=== PATIENT | female | born 1980 | race Two or more races ===

== ENCOUNTER 2023-10-26 10:53 | Outpatient (RCR) | payer MEDICAID, SELFPAY | END 2023-10-30 23:59 | disposition home or self-care (01) | LOC: CPTX 10:53 | PROVIDERS: PCP Physician Assistant; Referring Provider Physician Assistant; Visit Provider Physician Assistant | DX: Z53.9 Procedure and treatment not carried out, unspecified reason (principal) ==

== ENCOUNTER 2024-09-30 16:25 | Observation (INO) | payer MEDICAID, SELFPAY ==
[2024-09-30 16:39] VITALS: BP 122/74; PULSE 70
--- NOTE | 2024-09-30 16:57 | XR_ITS ---
Examination: Biophysical profile, ultrasound Date and time of exam: September 30, 2024 1747 hrs. Indications: Pelvic pain beginning 3 weeks ago Technique: Multiple transabdominal sonographic images of the pelvis abdomen obtained. Attention is directed to the breathing movement, gross body movement, amniotic fluid volume and tone. Findings: Amniotic fluid index 15.4 cm Total biophysical profile is 8 of 8. breathing movement is 2. Gross body movement is 2. tone is 2. Qualitative amniotic fluid volume is 2 Impression: Biophysical profile is 8 of 8.
[2024-09-30 17:40] LABS: Collection Type, Urine Clean Catch
[2024-09-30 17:47] LABS: Basophils % (Auto) 0 % (0-2.5); Eosinophils % (Auto) 1 % (0-10); Hematocrit 36.8 % (36.0-46.0); Hemoglobin 12.4 g/dL (12.0-16.0); Immature Granulocytes % (Auto) 0 % (0-0); Immature Granulocytes Auto 0.02 Thou/mm3 (0.00-0.00); Lymphocytes # (Auto) 1.2 Thou/mm3 (1.0-4.8); Lymphocytes % (Auto) 21 % (10-50); Mean Corpuscular HGB Conc 33.7 g/dl (31.0-37.0); Mean Corpuscular Hemoglobin 28.4 pg (25.0-35.0); Mean Corpuscular Volume 84 fL (80-100); Monocytes # (Auto) 0.4 Thou/mm3 (0.0-0.8); Monocytes % (Auto) 8 % (0-12); Neutrophils # (Auto) 4.1 Thou/mm3 (1.8-7.7); Neutrophils % (Auto) 70 % (37-80); Nucleated Red Blood Cell % 0 /100 WBC (0); Platelet Count 178 Thou/mm3 (140-440); RDW Standard Deviation 41.1 fL (36.4-46.3); Red Blood Count 4.37 Miln/mm3 (4.00-5.20); White Blood Count 5.8 Thou/mm3 (3.6-11.0)
[2024-09-30 17:50] LABS: Bilirubin,Urine Negative (Negative); Blood,Urine Negative (Negative); Clarity,Urine Clear (Clear/Hazy); Color,Urine Yellow (Lt Yel-Yel); Glucose, Urine Negative (Negative); Ketones,Urine Negative (Negative); Leukocyte Esterase,Urine Negative (Negative); Nitrite,Urine Negative (Negative); Protein,Urine Trace (Neg - Trace); RBC,Urine 1 /hpf (0-3); Squamous Epithelial Cell,Urine 2 /hpf (0-5); WBC,Urine 3 /hpf (0-5)
[2024-09-30 18:01] LABS: Partial Thromboplastin Time 25.6 Seconds (22.0-36.0); Prothrombin Time 10.5 Seconds (9.0-12.2)
[2024-09-30 18:02] LABS: Alanine Aminotransferase 38 U/L (10-49); Albumin, Serum 4.2 gm/dL (3.5-5.0); Albumin/Globulin Ratio 1.4 (1.2-2.2); Alkaline Phosphatase 268 U/L (46-116); Anion Gap 12 (7-16); Aspartate Amino Transferase 65 U/L (0-34); BUN/Creatinine Ratio 24 Ratio (12-20); Bilirubin,Total 0.5 mg/dL (0.3-1.2); Blood Urea Nitrogen 17 mg/dL (9-23); Calcium 9.1 mg/dL (8.3-10.6); Calcium (Corrected) 9.1 mg/dL (8.5-10.1); Carbon Dioxide 20.2 mMol/L (20.0-31.0); Chloride 103 mMol/L (98-107); Creatinine (Component) 0.7 mg/dL (0.6-1.3); Globulin 2.9 gm/dL (2.3-3.5); Glucose 95 mg/dL (74-106); LDH (Lactate Dehydrogenase) 154 U/L (120-246); Osmolality,Calculated 271 (275-295); Sodium 135 mMol/L (136-145); Total Protein 7.1 gm/dL (5.7-8.2); eGFR > 60 See Note
[2024-09-30 18:09] LABS: Fibrinogen 620 mg/dL (175-375)
[2024-09-30 18:51] VITALS: BP 114/74; PULSE 66
[2024-09-30 19:30] VITALS: BMI 30.9
== END 2024-09-30 19:15 | disposition home or self-care (01) ==
PROVIDERS: Admitting Provider Obstetrics & Gynecology; Visit Provider Obstetrics & Gynecology
DX: O26.893 Other specified pregnancy related conditions, third trimester (principal); R10.13 Epigastric pain; L29.9 Pruritus, unspecified; Z3A.36 36 weeks gestation of pregnancy
CPT/HCPCS: 36415; 59025; 59899; 76819; 80053; 81001; 83615; 84550; 85025; 85384; 85610; 85730

== ENCOUNTER 2024-10-02 16:08 | Outpatient (CLI) | payer MEDICAID, SELFPAY ==
--- NOTE | 2024-10-02 16:16 | XR_ITS ---
Examination: Biophysical profile, ultrasound Date and time of exam: October 02, 2024 1628 hours INDICATIONS: Diagnosis cholestasis of , right upper abdominal pain beginning 2 weeks ago Technique: Multiple transabdominal sonographic images of the pelvis abdomen obtained. Attention is directed to the breathing movement, gross body movement, amniotic fluid volume and tone. Findings: Amniotic fluid index 9.2 cm Total biophysical profile is 8 of 8. breathing movement is 2. Gross body movement is 2. tone is 2. Qualitative amniotic fluid volume is 2 Impression: Biophysical profile is 8 of 8.
[2024-10-02 16:24] VITALS: BMI 30.9
[2024-10-02 17:14] VITALS: BP 112/70; PULSE 67
[2024-10-02 17:44] VITALS: BP 120/76; PULSE 66
== END 2024-10-02 18:00 | disposition home or self-care (01) ==
LOC: S4S1 16:09 → S4SX 16:10
PROVIDERS: Referring Provider Nurse Practitioner Women's Health; Visit Provider Nurse Practitioner Women's Health
DX: Z34.83 Encounter for supervision of other normal pregnancy, third trimester (principal); Z36.9 Encounter for antenatal screening, unspecified; Z3A.37 37 weeks gestation of pregnancy
CPT/HCPCS: 59025; 76819

== ENCOUNTER 2024-10-08 16:12 | Inpatient (IN) | payer MEDICAID, SELFPAY ==
[2024-10-08] VITALS (9 sets, daily range): BP systolic 104–119; BP diastolic 56–78; PULSE 62–71; RESP 18; TEMP 36.4–36.7; BMI 29.9
[2024-10-08 16:53] LABS: Basophils % (Auto) 0 % (0-2.5); Eosinophils % (Auto) 0 % (0-10); Hematocrit 37.7 % (36.0-46.0); Hemoglobin 12.9 g/dL (12.0-16.0); Immature Granulocytes % (Auto) 0 % (0-0); Immature Granulocytes Auto 0.01 Thou/mm3 (0.00-0.00); Lymphocytes # (Auto) 1.1 Thou/mm3 (1.0-4.8); Lymphocytes % (Auto) 20 % (10-50); Mean Corpuscular HGB Conc 34.2 g/dl (31.0-37.0); Mean Corpuscular Hemoglobin 28.1 pg (25.0-35.0); Mean Corpuscular Volume 82 fL (80-100); Monocytes # (Auto) 0.4 Thou/mm3 (0.0-0.8); Monocytes % (Auto) 7 % (0-12); Neutrophils % (Auto) 73 % (37-80); Nucleated Red Blood Cell % 0 /100 WBC (0); Platelet Count 158 Thou/mm3 (140-440); RDW Standard Deviation 39.8 fL (36.4-46.3); Red Blood Count 4.59 Miln/mm3 (4.00-5.20); White Blood Count 5.5 Thou/mm3 (3.6-11.0)
--- NOTE | 2024-10-08 16:56 | XR_ITS ---
Examination: Complete OB ultrasound greater than 14 weeks Date and time of exam: October 08, 2024 1708 hrs. Indications: Diagnosis cholestasis of one month ago, labor evaluation, pelvic discomfort beginning 3 weeks ago Findings: Viable intrauterine single fetus with single amniotic sac presentation cephalic Cardiac motion 122 BPM Placenta anterior grade 3 Umbilical cord insertion seen Amniotic fluid index 18.7 cm spine maternal right Cervix 2.8 cm Ovaries obscured by bowel gas. Composite estimated gestational age based on BPD, head circumference, abdominal circumference, femur length is 37 weeks 0 days Estimated weight 3055 g. Survey of intracranial anatomy, spinal anatomy, abdominal anatomy, four-chamber heart performed with no abnormalities identified. Impression: Viable intrauterine gestation cephalic presentation.
[2024-10-08 17:34] LABS: Syphilis Nonreactive (Nonreactive)
[2024-10-08] MEDS: CLINDAMYCIN 900MG IVPB 900 MG in PRE-MIXED 1 BAG 50 MG IV (18:35)
[2024-10-08] MEDS: RINGERS LACTATED 1000 ML 1,000 ML 100 ML IV (18:37)
--- NOTE | 2024-10-08 18:48 | ESHP_ITS ---
Documentation for date of: 10/08/24 OB Labor/Induct. HPI History of Present Illness Chief complaint: 44 y/o 38w 0d presents for IOL due to Cholestasis : 8 Para: 5 Term pregnancies: 5 pregnancies: 0 Living children: 5 History of Abortions: Spontaneous and Elective: 2 History of Vaginal deliveries: 5 History of sections: No History of : No ERICK: 10/22/24 Gestational Age (weeks): 38 Gestational Age (days): 0 Indication for induction: medical complication History of present illness: 44 y/o 38w 0d presents for IOL due to Cholestasis. Pt has been also complicated by AMA of 44. PT was a transfer of care from Dr. Campbell office at 31 weeks. Pt saw [facility] prior to coming to [facility] and they recommended that fetus gets testing for monosomy X possible Hogan Syndrome. Pt was also seen by Dr. Hernandez at [facility] growth was normal, at 65%ile. Anatomy appeared to be normal but unable to evaluate all structures due to crowding. Pt was recently diagnosed with cholestasis with bile acids 12.8, AST 50 and ALT 82. Pt is currently on ursodiol 300 TID. Pt has a hx of NVDx5 and 2 SAB. GBS is positive. EFW 3000g History of Present Dating criteria: LMP confirmed by 1st trimester US Adequate Care: Yes Ultrasounds: normal 1st trimester US and normal mid trimester US Obstetrical complications: other (Cholestasis and AMA) Labs Maternal Blood Type: O Pos Labs: Positive: Rubella Titre and Group Beta Strep, Negative: RPR, Hepatitis B, HIV, Chlamydia and Gonorrhea and Unknown: Herpes Type 1, Herpes Type 2 and Covid-19 Review of Systems Review of Systems Systems Reviewed: All systems reviewed, normal except as documented Past Medical History Surgical History SURGICAL: Negative Section Meds Home Medications and Allergies Home Medications ?Medication ?Instructions ?Recorded ?Confirmed ?Type vits no.124-ferrous fum 1 tab PO QDAY 09/19/18 10/08/24 History 27 mg iron-folic acid 800 mcg tablet ( Vitamin) Allergies Allergy/AdvReac Type Severity Reaction Status Date / Time Penicillins Allergy Severe Swelling Verified 09/30/24 17:26 of Lip/Tongue/Throat OB Exam Physical Exam Vital signs: Temp Pulse Resp BP 98.1 F 65 18 113/63 10/08/24 16:22 10/08/24 18:36 10/08/24 16:22 10/08/24 18:36 Constitutional Constitutional: no acute distress Routine HEENT Exam Head: Present normocephalic and atraumatic Eye: Present EOMI, PERRL and normal accommodation ENT: Present mucous membranes moist Routine Neck Exam Neck: Present supple, full ROM and trachea midline Routine Respiratory Exam Respiratory: Absent respiratory distress Routine Cardiovascular Exam Cardiovascular: Present RRR Routine Abdominal Exam Abdominal: Present soft and normoactive bowel sounds Comments: Gravid Uterus EFW 3000g Routine Exam External: Present normal urethra appearance; Absent lesions Detailed Labor and Delivery Exam Dilation (cm): 1 Effacement (%): thick Cervix position: posterior station: -3 Consistency: medium Presentation: Vertex Membranes: intact Baseline heart rate: 125 monitor accelerations: 15x15 monitor decelerations: None exterminator termite variability: Moderate (11-25) Contraction frequency (min): none Routine Extremities Exam Extremities: Present full ROM Routine Back/Spine/Pelvis Exam Back/Spine: Present full ROM Routine Skin Exam Skin: Present intact, dry and warm Routine Neurological Exam Neurological: Present alert, oriented X3 and CN II-XII intact Routine Psychiatric Exam Psychiatric: Present normal affect and normal thought process OB Results Labs 10/08/24 16:38 Labs: Short CBC 10/08/24 Range/Units 16:38 WBC 5.5 (3.6-11.0) Thou/mm3 Hgb 12.9 (12.0-16.0) g/dL Hct 37.7 (36.0-46.0) % Plt Count 158 (140-440) Thou/mm3 OB Assessment & Plan Assessment and Plan (1) Encounter for induction of labor: Status: Acute (2) Cholestasis during in third trimester: Status: Acute (3) Advanced maternal age (AMA), 40 years or greater: Status: Acute (4) Grand multipara in labor in third trimester: Status: Acute (5) GBS carrier: Status: Acute Additional Plan Induction method: other (Cervidil) Plan: induction, anticipate NVD, GBS prophylaxis tx and consult prn Additional Plan Comment: Routine admit orders Start 2 IV lines 2 units of pRBC on hold PPH meds at bedside during delivery Continuous EFM Continue urosdiol 300mg TID
[2024-10-08] MEDS: DINOPROSTONE 10 MG VAG.SUPP VAGINAL (19:11)
[2024-10-09] VITALS (52 sets, daily range): BP systolic 107–137; BP diastolic 59–76; PULSE 59–90; TEMP 36.8; O2SAT 79–100
[2024-10-09] MEDS: CLINDAMYCIN 900MG IVPB 900 MG in PRE-MIXED 1 BAG 50 MG IV ×3 (02:21→19:08)
[2024-10-09 05:58] LABS: Basophils % (Auto) 0 % (0-2.5); Eosinophils % (Auto) 0 % (0-10); Hematocrit 35.5 % (36.0-46.0); Hemoglobin 12.2 g/dL (12.0-16.0); Immature Granulocytes % (Auto) 0 % (0-0); Immature Granulocytes Auto 0.02 Thou/mm3 (0.00-0.00); Lymphocytes % (Auto) 19 % (10-50); Mean Corpuscular HGB Conc 34.4 g/dl (31.0-37.0); Mean Corpuscular Hemoglobin 28.6 pg (25.0-35.0); Mean Corpuscular Volume 83 fL (80-100); Monocytes # (Auto) 0.5 Thou/mm3 (0.0-0.8); Monocytes % (Auto) 9 % (0-12); Neutrophils # (Auto) 3.8 Thou/mm3 (1.8-7.7); Neutrophils % (Auto) 72 % (37-80); Nucleated Red Blood Cell % 0 /100 WBC (0); Platelet Count 135 Thou/mm3 (140-440); RDW Standard Deviation 41.2 fL (36.4-46.3); Red Blood Count 4.27 Miln/mm3 (4.00-5.20); White Blood Count 5.3 Thou/mm3 (3.6-11.0)
[2024-10-09 06:12] LABS: Anion Gap 11 (7-16); BUN/Creatinine Ratio 26 Ratio (12-20); Blood Urea Nitrogen 18 mg/dL (9-23); Calcium 9.3 mg/dL (8.3-10.6); Carbon Dioxide 19.9 mMol/L (20.0-31.0); Chloride 101 mMol/L (98-107); Creatinine (Component) 0.7 mg/dL (0.6-1.3); Estimated Creatinine Clearance 98.7 mL/min (>60); Gentamicin Trough < 0.5 mcg/mL; Glucose 67 mg/dL (74-106); Osmolality,Calculated 264 (275-295); Potassium 3.7 mMol/L (3.4-5.1); Sodium 132 mMol/L (136-145); eGFR > 60 See Note
--- NOTE | 2024-10-09 07:20 | PD.LDPN ---
Documentation for date of: 10/09/24 OB Labor Progress Note Pain Control Pain control: tolerating well Pelvic Exam Dilation (cm): 1 Effacement (%): thick station: -3 Contractions Monitor mode: External Contraction frequency: 2-4 Contraction duration: 40-60 Status status: Category l Assessment and Plan Assessment: induction ongoing Plan OB labor note: continuous present management Comments: Removed the cervidil. Will start oral cytotec OK to eat breakfast Anticipate
[2024-10-09] MEDS: MISOPROSTOL 50 mCg TABLET PO ×3 (08:42→18:31)
--- NOTE | 2024-10-09 18:08 | PD.LDPN ---
Documentation for date of: 10/09/24 OB Labor Progress Note Pain Control Pain control: tolerating well Pelvic Exam Dilation (cm): 3 Effacement (%): 50 station: -3 Amniotic membrane status: Intact Contractions Monitor mode: External Contraction frequency: 2-6 Status status: Category l Assessment and Plan Assessment: induction ongoing Plan OB labor note: continuous present management Comments: 2 doses of cytotec Continue with cytotec Anticipate
[2024-10-09] MEDS: RINGERS LACTATED 1000 ML 1,000 ML 100 ML IV (19:37)
--- NOTE | 2024-10-09 21:29 | OBDSUM_ITS ---
Data (Harris) Data Hx Section: No Maternal Blood Type: O Pos Rubella Titre: Positive RPR: Non-reactive Labs: Positive: Group Beta Strep, Negative: RPR, Hepatitis B, HIV, Chlamydia and Gonorrhea and Unknown: Herpes Type 1 and Herpes Type 2 : 8 Para: 5 Term: 5 : 0 Livin : 2 Delivery Data (Harris) Labor Data Stimulated/Augmented: No Induction: Yes Method: Cervidil ROM Date: 10/09/24 ROM Time: 20:46 Rupture Type: SROM Amniotic Fluid: Clear Delivery Data EDC: 10/22/24 EDC calculated by:: LMP/early US confirmation Labor Onset Stage 1 Date: 10/09/24 Labor Onset Stage 1 Time: 20:00 Labor Onset Stage 2 Date: 10/09/24 Labor Onset Stage 2 Time: 21:00 Delivery Date: 10/09/24 Delivery Time: 21:06 Gestational age (weeks): 38 Gestational age (days): 1 Placenta Delivery Date: 10/09/24 Placenta Delivery Time: 21:10 Delivered by: Massiel Joseph Delivery nurse: Alyson Patel Dog Control Officer at delivery: Yes ([facility]) Support person(s) at delivery: FOB Other staff at delivery: 2nd Nurse Other staff at delivery: 2nd Nurse Other staff at delivery: RT Other staff at delivery: Irma Chris Other staff at delivery: Yani Lomax Other staff at delivery: ANTIONETTE EARLY Delivery Method Delivery: Vaginal Delivery Type: Spontaneous Presentation: Vertex Position: OA Anesthesia Type Primary Anesthesia: Local Delivery Room Medications Intrapartum Medications: Antibiotics Other Intrapartum Medications: No Post Delivery Medications N/A: No Placenta Placenta Delivery: Spontaneous Placenta Cultures Obtained: No Placenta Sent for Examination: No Cord Sample: Cord Blood Obtained Episiotomy Episiotomy: None Lacerations #1: Perineal: 1st degree Perineal repair Sutures used for repair: 3.0 Vicryl (CT) EBL Estimated blood loss (ml): 300 Umbilical Cord Umbilical Vessels: 3 Nuchal Cord: Not Applicable Body Cord: Not Applicable Additional Procedures Patient progressed very quickly she became complete from 6 to 10 cm with an [address] Ford also at bedside. Patient pushed a couple of times and had an of a viable female infant. 's anterior shoulder delivered with gentle downward traction subsequent deliver the posterior shoulder and the body without complications. placed on mother's abdomen. Vigorous cry upon delivery. Cord was clamped. Cut by CNM. Cord blood obtained. Three- vessel cord noted. Placenta expelled spontaneously and intact. Patient sustained a first-degree perineal laceration. Repaired using a 3-[address] suture. Excellent hemostasis achieved after vigorous fundal massage and removal of clots from the posterior fornix. EBL 300. Sponge and needle count correct. Mother and baby stable, skin to skin and bonding in LDR. Data (Harris) [place] Data Infant Gender: Female Weight Grams: 2840 1 Minute Total: 8 5 Minute Total: 9 10 Minute Total: 9
[2024-10-09] MEDS: OXYTOCIN in NS 20 units 20 UNIT/1,000 ML BAG 125 UNIT IV (21:41)
[2024-10-09] MEDS: LIDOCAINE HCL 1% 20 ML VIAL IM (21:41)
[2024-10-09] MEDS: MINERAL OIL 30 ML UDC TOP (21:41)
[2024-10-09] MEDS: BENZO/LANO/ALOE (Dermoplast) 60 GM CAN 1 SPRAY TOP (21:42)
[2024-10-09] MEDS: TRANEXAMIC ACID 1,000 MG IVPB 1,000 MG/100 ML BAG 200 MG IV ×2 (21:45→23:21)
[2024-10-09] MEDS: IBUPROFEN TAB 400 MG TABLET 800 MG PO (22:45)
[2024-10-10 03:30] VITALS: BP 103/65; PULSE 69; RESP 17; TEMP 37.2; O2SAT 96
[2024-10-10] MEDS: OXYTOCIN in NS 20 units 20 UNIT/1,000 ML BAG 125 UNIT IV (03:41)
[2024-10-10 05:35] LABS: Basophils % (Auto) 0 % (0-2.5); Eosinophils % (Auto) 0 % (0-10); Hematocrit 31.1 % (36.0-46.0); Hemoglobin 10.7 g/dL (12.0-16.0); Immature Granulocytes % (Auto) 0 % (0-0); Immature Granulocytes Auto 0.03 Thou/mm3 (0.00-0.00); Lymphocytes # (Auto) 1.1 Thou/mm3 (1.0-4.8); Lymphocytes % (Auto) 12 % (10-50); Mean Corpuscular HGB Conc 34.4 g/dl (31.0-37.0); Mean Corpuscular Hemoglobin 28.4 pg (25.0-35.0); Mean Corpuscular Volume 83 fL (80-100); Monocytes # (Auto) 0.6 Thou/mm3 (0.0-0.8); Monocytes % (Auto) 7 % (0-12); Neutrophils # (Auto) 7.5 Thou/mm3 (1.8-7.7); Neutrophils % (Auto) 81 % (37-80); Nucleated Red Blood Cell % 0 /100 WBC (0); Platelet Count 113 Thou/mm3 (140-440); RDW Standard Deviation 40.8 fL (36.4-46.3); Red Blood Count 3.77 Miln/mm3 (4.00-5.20); White Blood Count 9.3 Thou/mm3 (3.6-11.0)
[2024-10-10 06:00] LABS: Anion Gap 9 (7-16); BUN/Creatinine Ratio 23 Ratio (12-20); Blood Urea Nitrogen 14 mg/dL (9-23); Calcium 8.5 mg/dL (8.3-10.6); Carbon Dioxide 19.2 mMol/L (20.0-31.0); Chloride 109 mMol/L (98-107); Creatinine (Component) 0.6 mg/dL (0.6-1.3); Estimated Creatinine Clearance 115.2 mL/min (>60); Glucose 77 mg/dL (74-106); Osmolality,Calculated 273 (275-295); Potassium 3.8 mMol/L (3.4-5.1); Sodium 137 mMol/L (136-145); eGFR > 60 See Note
--- NOTE | 2024-10-10 06:00 | ESDS_ITS ---
DS: Providers Provider Date of admission: 10/08/24 16:12 Primary care physician: Physician No Primary/Family Admitting Provider: Massiel Joseph CNM Attending Provider on Admission: Massiel Joseph CNM Attending Provider on DC: Massiel Joseph CNM Discharging Provider: Massiel Joseph CNM Anticipated date of discharge: 10/10/24 DS: Diagnosis Discharge Diagnosis (1) Normal spontaneous vaginal delivery: Status: Acute (2) Encounter for care of lactating mother: Status: Acute (3) GBS carrier: Status: Acute (4) Grand multipara in labor in third trimester: Status: Acute (5) Advanced maternal age (AMA), 40 years or greater: Status: Acute (6) Cholestasis during in third trimester: Status: Acute (7) Encounter for induction of labor: Status: Acute Problem List Completed Was Problem List Reviewed/Reconciled?: Yes Summary/Hosp Course Brief History: 44 y/o 38w 0d presents for IOL due to Cholestasis. Pt has been also complicated by AMA of 44. PT was a transfer of care from Dr. Campbell office at 31 weeks. Pt saw [facility] prior to coming to [facility] and they recommended that fetus gets testing for monosomy X possible Hogan Syndrome. Pt was also seen by Dr. Hernandez at [facility] growth was normal, at 65%ile. Anatomy appeared to be normal but unable to evaluate all structures due to crowding. Pt was recently diagnosed with cholestasis with bile acids 12.8, AST 50 and ALT 82. Pt is currently on ursodiol 300 TID. Pt has a hx of NVDx5 and 2 SAB. GBS is positive. EFW 3000g 10/09/24: Patient progressed very quickly she became complete from 6 to 10 cm with an [address] Ford also at bedside. Patient pushed a couple of times and had an of a viable female . 's anterior shoulder delivered with gentle downward traction subsequent deliver the posterior shoulder and the body without complications. Infant placed on mother's abdomen. Vigorous cry upon delivery. Cord was clamped. Cut by BLAYNE. Cord blood obtained. Three-vessel cord noted. Placenta expelled spontaneously and intact. Patient sustained a first-degree perineal laceration. Repaired using a 3-[address] suture. Excellent hemostasis achieved after vigorous fundal massage and removal of clots from the posterior fornix. EBL 300. Sponge and needle count correct. Mother and baby stable, skin to skin and bonding in LDR. 10/10/24: day 1. Patient is stable and afebrile doing well and . Denies dizziness shortness of breath. No issues with voiding or passing gas. Uterus is nontender fundus firm minimal lochia. Vital signs are good CBC is stable. Discharge instructions given. Patient to follow-up with Christian Joseph CNM in 3 weeks Peripartum Data Delivery Method: Normal Vaginal Delivery Episiotomy Description: None Laceration Description: yes and see Delivery Summary complications: none [place] 1: Gender: Female Disposition of : home Status at Discharge Cognitive/behavioral status at discharge: Alert and oriented x 3 Functional status at discharge: independent ambulation Overall status at discharge: patient is progressing back to baseline Time Spent with Patient Time attestation: Total time spent providing and/or coordinating discharge services: Time spent: Greater than 30 minutes Exam Vital Signs Temp Pulse Resp BP Pulse Ox 97.6 F 59 L 18 137/63 H 79 L 10/08/24 22:48 10/09/24 20:20 10/08/24 16:22 10/09/24 20:20 10/09/24 21:20 Constitutional Constitutional: no acute distress Routine HEENT Exam Head: Present normocephalic and atraumatic Eye: Present EOMI, PERRL and normal accommodation ENT: Present mucous membranes moist Routine Neck Exam Neck: Present supple, full ROM and trachea midline Routine Respiratory Exam Respiratory: Present chest non-tender, lungs clear, normal breath sounds and no resp distress Routine Cardiovascular Exam Cardiovascular: Present RRR Routine Abdominal Exam Abdominal: Present soft and normoactive bowel sounds; Absent tenderness or distended Comments: Uterus nontender Fundus firm Routine Exam Patient deferred: external exam Routine Extremities Exam Extremities: Present full ROM, pulses intact and normal capillary refill; Absent calf tenderness or tenderness Routine Back/Spine/Pelvis Exam Back/Spine: Present full ROM Routine Skin Exam Skin: Present intact, dry and warm Routine Neurological Exam Neurological: Present alert, oriented X3 and CN II-XII intact Routine Psychiatric Exam Psychiatric: Present normal affect and normal thought process Discharge Plan Plan Patient Disposition: HOME (Self Care) Patient condition on transfer: Stable Prescriptions/Referrals Prescriptions/Med Rec: New ibuprofen 800 mg tablet 800 mg PO Q6H MDD 4 PRN (Reason: pain) Qty: 120 0RF docusate sodium [Colace] 100 mg capsule 100 mg PO BID Qty: 60 0RF lanolin 50 % ointment 1 applic topical TID PRN (Reason: skin irritation) Qty: 15 0RF Continued Vitamin 27 mg iron- 800 mcg Tablet 1 tab PO QDAY Referrals: No Primary/Family,Physician [Primary Care Provider] - Patient/Caregiver Discharge Instructions Meds to Beds: No Discharge Activity: activity as tolerated Other Discharge Activity Instructions:: Follow-up with Massiel Joseph CNM in 3 weeks Education Materials: After a Vaginal , : Caring for Yourself Print Language: Greenlandic Stand Alone Forms: Abby Award Info., Patient Portal Info Letter Discharge Order Discharge Orders: Discharge (Routine); Ordered 10/10/24 Ordered By: Massiel Joseph Planned Discharge Date 10/10/24
[2024-10-10] MEDS: IBUPROFEN TAB 400 MG TABLET 800 MG PO (07:22)
[2024-10-10 07:31] VITALS: BP 107/62; PULSE 57; RESP 16; TEMP 36.8; O2SAT 97
[2024-10-10] MEDS: DOCUSATE SOD 100 MG CAPSULE PO ×2 (08:44→21:49)
--- NOTE | 2024-10-10 09:39 | CHAP ---
Gave a blessing on and family.
[2024-10-10 13:06] VITALS: BP 107/63; PULSE 64; RESP 16; TEMP 36.7; O2SAT 97
[2024-10-10 16:28] VITALS: BP 108/68; PULSE 69; RESP 18; TEMP 36.8; O2SAT 97
[2024-10-10 20:00] VITALS: BP 108/73; PULSE 77; RESP 16; TEMP 37; O2SAT 97
== END 2024-10-10 22:50 | disposition home or self-care (01) | DRG 560 ==
LOC: S4SX 10-09 21:36 → S4NX 10-09 23:25
PROVIDERS: Admitting Provider Nurse Practitioner Women's Health; Visit Provider Nurse Practitioner Women's Health
DX: O26.643 Intrahepatic cholestasis of pregnancy, third trimester (principal); E78.79 Other disorders of bile acid and cholesterol metabolism; K76.89 Other specified diseases of liver; O99.824 Streptococcus B carrier state complicating childbirth; Z37.0 Single live birth; Z3A.38 38 weeks gestation of pregnancy; O70.0 First degree perineal laceration during delivery
CPT/HCPCS: 36415; 59409; 76805; 80048; 80170; 85025; 86780; 86850; 86900; 86901; 86923; 94762; J2590; J3490; J7120; S0077; A9270; J0736

== ENCOUNTER 2025-08-20 03:15 | Emergency (ER) | payer MEDICAID, SELFPAY ==
[2025-08-20 03:22] VITALS: BP 102/68; PULSE 68; RESP 19; TEMP 36.5; O2SAT 99; BMI 28.3
--- NOTE | 2025-08-20 03:40 | XR_ITS ---
Examination: CT abdomen and pelvis without contrast. Coronal 3-D reconstructions. Sagittal 2-D reconstructions. Date and time of exam: August 20, 2025, 0623 hours INDICATIONS: Right upper abdominal pain flank pain beginning 1:00 a.m. this morning CTDI: vol (mGy): 7.23 DLP: (mGycm): 371 Technique: Axial images of the abdomen have been obtained, 3 mm slice thickness Intravenous contrast material has not been administered. Low dose protocols were performed. One or more of the following dose reduction techniques were used; automated exposure control, adjustment of the mA and/or KV according to patient size, use of iterative reconstruction technique. Findings: No focal liver or splenic lesions No gallstones No pancreatic or adrenal mass Mild renal scarring 1 mm lower pole nonobstructing right renal calculus, no hydronephrosis or ureteral calculi Aorta normal size Normal appendix No bowel obstruction Anteverted uterus No adnexal mass No bladder mass or bladder calculi Grade 1 spondylolisthesis L5 on S1 with advanced degenerative disc disease at the L5-S1 level IMPRESSION: One mm nonobstructing lower pole right renal calculus, no hydronephrosis or ureteral calculi Mild renal scarring Normal appendix No bladder mass or bladder calculi
--- NOTE | 2025-08-20 03:41 | XR_ITS ---
Examination: Abdomen sonogram, Limited Date and time of exam: August 20, 2025, 0355 hours INDICATIONS: Abdominal pain beginning 2 hours ago Technique: Real-time de la cruz scale transabdominal sonographic images of the upper abdomen obtained. Findings: Gallbladder sludge, no gallstones Gallbladder wall 0.3 cm Common bile duct 0.3 cm Pancreatic head 1.9 cm Liver 15.9 cm fatty infiltration no focal liver lesions Normal hepatopetal portal venous flow Patent IVC IMPRESSION: Gallbladder sludge Negative for cholelithiasis, negative for cholecystitis
--- NOTE | 2025-08-20 04:00 | EDNOTE_ITS ---
ED Abdominal Pain RME/HPI General Chief Complaint: Abdominal Pain Stated complaint: RIGHT UPPER ABDOMINAL PAIN Time seen by provider: 08/20/25 03:41 Arrival date/time: 08/20/25 03:15 RME / HPI RME / HPI narrative: See [facility] for Dr. Sloan's HPI Documentation. Related Data Home Medications ?Medication ?Instructions ?Recorded ?Confirmed vits no.124-ferrous fum 1 tab PO QDAY 8 10/08/24 27 mg iron-folic acid 800 mcg tablet ( Vitamin) Previous Rx's ?Medication ?Instructions ?Recorded docusate sodium 100 mg capsule 100 mg PO BID #60 caps 10/09/24 (Colace) ibuprofen 800 mg tablet 800 mg PO Q6H PRN pain #120 tabs 10/09/24 lanolin 50 % topical ointment 1 applic topical TID PRN skin 10/09/24 irritation #15 tubes Allergies Allergy/AdvReac Type Severity Reaction Status Date / Time Penicillins Allergy Severe Swelling Verified 10/09/24 19:42 of Lip/Tongue/Throat Review of Systems Review of Systems Systems Reviewed: All systems reviewed, normal except as documented Past Medical History Past Medical History ENDOCRINE: Positive Endocrine Disorders and Hyperthyroidism (self, no medication) HEMATOLOGIC: Positive Blood Disorders and Anemia ED Exam Narrative Physical exam: See [facility] for Dr. Sloan's Physical Exam Documentation. Course Quality Measures none Orders Category Date Time Status CT abdomen pelvis wo con Stat Exams 08/20/25 03:40 Ordered US gall bladder Stat Exams 08/20/25 03:41 Taken Amylase Stat Lab 08/20/25 03:41 Ordered Bilirubin,Direct Stat Lab 08/20/25 03:41 Ordered CBC Stat Lab 08/20/25 03:41 Ordered CMP [Comprehensive Metabolic Panel] Stat Lab 08/20/25 03:41 Ordered HCG Qualitative,Urine Stat Lab 08/20/25 04:21 Received HCG,Qualitative Serum Stat Lab 08/20/25 03:41 Ordered Lipase Stat Lab 08/20/25 03:41 Ordered Magnesium Stat Lab 08/20/25 03:41 Ordered UA, C/S IF [Urinalysis, C/S if Indicated] Stat Lab 08/20/25 04:21 Received ACETAMINOPHEN w/COD 300-30 [Tylenol w/Cod #3] Med 08/20/25 03:40 Discontinued 2 tab PO X1 ONE Ketorolac Inj [Toradol Inj] Med 08/20/25 03:40 Discontinued 60 mg IM X1 ONE Ondansetron Odt [Zofran Odt] Med 08/20/25 03:40 Discontinued 4 mg PO X1 ONE Vital Signs Vital signs: Vital Signs Temperature 97.7 F 08/20/25 03:22 Pulse Rate 68 08/20/25 03:22 Respiratory Rate 19 08/20/25 03:22 Blood Pressure 102/68 08/20/25 03:22 Pulse Oximetry (%) 99 08/20/25 03:22 Oxygen Delivery Method Room Air 08/20/25 03:22 Abdominal Pain MDM MDM Narrative MDM Narrative:: This section includes all my notes and documentations, including HPI, PE, and ED course. Manolo Sloan MD HPI: 45-year-old female here with 2-hour history of severe right sided abdominal pain and nausea. No other complaints. ROS: All negative except as documented in HPI. Physical Exam: General: Alert and oriented. In severe pain. Eyes: Conjunctivae and lids clear. ENT: No nasal congestion. Neck: Supple. Heart: RRR. Lungs: No respiratory distress. Good air movement. No rhonchi, wheezing, rales. Abdomen: Soft with equivocal RUQ tenderness. Normal bowel sounds. No distension. No rebound or guarding. Back: No CVA tenderness. Skin: Warm and dry. Neuro: Alert and oriented X 3. I ordered Zofran ODT 4 mg, Toradol 60 mg IM, two Tylenol #3, and diagnostic tests. At 6 AM on 08/20/2025, the care of the patient was transferred to Dr. HAWKINS. Manolo Sloan MD Patient data External records reviewed:: [facility] previous records (Reviewed prior ED records from 02/01/23. Patient was seen for Gastritis.) Clinical information provided by:: patient Social determinants that could affect healthcare access:: none Patient has the following chronic illnesses:: None How is presenting disease/condition affected by chronic disease/condition?: no chronic disease Evaluation data The following diagnostics were reviewed and interpreted by me:: lab results and radiology exam(s) Lab and/or radiology exams considered but not ordered:: None Interpretation Summary: Complete diagnostic tests are pending. Medications / Prescriptions Medications or Prescriptions considered but not ordered:: None Medication administrations:: Medication Administration History Discontinued Medications Acetaminophen/Codeine Phosphate (Acetaminophen W/Cod 300-30 Tablet) 2 tab PO X1 ONE Stop: 08/20/25 03:41 Last Admin: 08/20/25 04:17 Dose: 2 tab Documented By: SF Ketorolac Tromethamine (Ketorolac Inj 60 Mg/2 Ml Vial) 60 mg IM X1 ONE Stop: 08/20/25 03:41 Last Admin: 08/20/25 04:17 Dose: 60 mg Documented By: CATHIE Ondansetron HCl (Ondansetron Odt 4 Mg Tabrap) 4 mg PO X1 ONE; Protocol Stop: 08/20/25 03:41 Last Admin: 08/20/25 04:17 Dose: 4 mg Documented By: CATHIE I ordered Zofran ODT 4 mg, Toradol 60 mg IM, two Tylenol #3, and diagnostic tests. Consultations Consultation(s) initiated? (list below): No Diagnosis Differential diagnosis abdominal pain: abdominal pain, acute appendicitis, calculus of kidney, constipation, diverticulitis, gastroenteritis, pancreatitis and small bowel obstruction Most likely diagnosis given after review of the tests above:: Complete diagnostic tests are pending. Admission Indicated Admission indicated?: not indicated Explain why admission is indicated or not indicated:: Complete diagnostic tests are pending. Admission Request Was there a request for admission?: No Disposition Plan Disposition Plan: other (specify) ( At 6 AM on 08/20/2025, the care of the patient was transferred to Dr. HAWKINS.) Discharge Plan Prescriptions/Referrals Prescriptions/Med Rec: No Action Vitamin 27 mg iron- 800 mcg Tablet 1 tab PO QDAY ibuprofen 800 mg tablet 800 mg PO Q6H MDD 4 PRN (Reason: pain) Qty: 120 0RF docusate sodium [Colace] 100 mg capsule 100 mg PO BID Qty: 60 0RF lanolin 50 % ointment 1 applic topical TID PRN (Reason: skin irritation) Qty: 15 0RF Referrals: Wesley Campbell MD [Primary Care Provider, Obstetrics] - In 1 week Problem List Clinical Impression: Abdominal pain Patient/Caregiver Discharge Instructions Print Language: Belarusian
[2025-08-20] MEDS: ONDANSETRON ODT 4 MG TABRAP PO (04:17)
[2025-08-20] MEDS: KETOROLAC INJ 60 MG/2 ML VIAL IM (04:17)
[2025-08-20] MEDS: ACETAMINOPHEN w/COD 300-30 TABLET 2 TAB PO (04:17)
[2025-08-20 04:27] LABS: Collection Type, Urine Clean Catch
[2025-08-20 04:33] LABS: Bilirubin,Urine Negative (Negative); Blood,Urine Negative (Negative); Clarity,Urine Clear (Clear/Hazy); Color,Urine Lt-Yellow (Lt Yel-Yel); Culture Indicated,Urine Not Indicated; Glucose, Urine Negative (Negative); Ketones,Urine Negative (Negative); Leukocyte Esterase,Urine Negative (Negative); Nitrite,Urine Negative (Negative); PH,Urine 6.0 (5.0-7.0); Protein,Urine Trace (Neg - Trace); RBC,Urine 4 /hpf (0-3); Specific Gravity,Urine 1.024 (1.001-1.035); Squamous Epithelial Cell,Urine 6 /hpf (0-5); Urobilinogen,Urine Negative mg/dL (0.0-1.0); WBC,Urine 4 /hpf (0-5)
[2025-08-20 04:39] LABS: HCG Qualitative,Urine Negative
--- NOTE | 2025-08-20 05:03 | PRELIM_ITS ---
Right upper quadrant abdominal ultrasound. August 20, 2025 at 0355 hours Clinical history: RUQ tenderness x 2 hours Technique: Grayscale and color flow images of the right upper quadrant are provided. Hepatic and portal veins were also imaged with color flow images. Comparison: No prior study is available for comparison. Findings: The liver measures 15.9 cm in length and demonstrates increased echogenicity consistent with fatty infiltration. No focal hepatic mass or intrahepatic biliary ductal dilatation is identified. The main portal vein is patent and demonstrates hepatopetal flow. The gallbladder wall measures 2.7 mm and appears normal in thickness. Sludge is seen within the gallbladder lumen. No gallstones or pericholecystic fluid is identified. The common bile duct measures 2.5 mm in calibre and is within normal limits. The pancreas to the extent visualized appears homogeneous and within normal limits. The visualized inferior vena cava is patent. Impression: Gallbladder sludge. No sonographic evidence of cholelithiasis, acute cholecystitis or biliary obstruction. Fatty infiltration of the liver. Report Electronically Signed By: Jose Kahn 08/20/2025 5:02:44 AM [EST]
[2025-08-20 05:34] LABS: Basophils # (Auto) 0.0 Thou/mm3 (0.0-0.2); Basophils % (Auto) 0 % (0-2.5); Eosinophils # (Auto) 0.1 Thou/mm3 (0.0-0.5); Eosinophils % (Auto) 1 % (0-10); Hematocrit 33.0 % (36.0-46.0); Hemoglobin 10.6 g/dL (12.0-16.0); Immature Granulocytes Auto 0.01 Thou/mm3 (0.00-0.00); Lymphocytes # (Auto) 1.2 Thou/mm3 (1.0-4.8); Lymphocytes % (Auto) 19 % (10-50); Mean Corpuscular HGB Conc 32.1 g/dl (31.0-37.0); Mean Corpuscular Hemoglobin 25.2 pg (25.0-35.0); Mean Corpuscular Volume 79 fL (80-100); Monocytes # (Auto) 0.6 Thou/mm3 (0.0-0.8); Monocytes % (Auto) 9 % (0-12); Neutrophils # (Auto) 4.2 Thou/mm3 (1.8-7.7); Neutrophils % (Auto) 70 % (37-80); Nucleated Red Blood Cell # 0.00 Thou/mm3 (0.00-0.00); Nucleated Red Blood Cell % 0 /100 WBC (0); Platelet Count 187 Thou/mm3 (140-440); RDW Standard Deviation 43.1 fL (36.4-46.3); Red Blood Count 4.20 Miln/mm3 (4.00-5.20); White Blood Count 6.0 Thou/mm3 (3.6-11.0)
[2025-08-20 05:57] LABS: Alanine Aminotransferase 12 U/L (10-49); Albumin, Serum 4.5 gm/dL (3.5-5.0); Albumin/Globulin Ratio 1.7 (1.2-2.2); Alkaline Phosphatase 120 U/L (46-116); Amylase 91 U/L (30-118); Anion Gap 10 (7-16); Aspartate Amino Transferase 21 U/L (0-34); BUN/Creatinine Ratio 24 Ratio (12-20); Bilirubin,Direct 0.1 mg/dL (0.0-0.3); Bilirubin,Total 0.6 mg/dL (0.3-1.2); Blood Urea Nitrogen 12 mg/dL (9-23); Calcium 8.7 mg/dL (8.3-10.6); Calcium (Corrected) 8.7 mg/dL (8.5-10.1); Carbon Dioxide 23.9 mMol/L (20.0-31.0); Chloride 106 mMol/L (98-107); Creatinine (Component) 0.5 mg/dL (0.6-1.3); Estimated Creatinine Clearance 133.3 mL/min (>60); Globulin 2.7 gm/dL (2.3-3.5); Glucose 103 mg/dL (74-106); Lipase 46 U/L (12-53); Magnesium 1.8 mg/dL (1.6-2.6); Osmolality,Calculated 279 (275-295); Potassium 4.3 mMol/L (3.4-5.1); Sodium 140 mMol/L (136-145); Total Protein 7.2 gm/dL (5.7-8.2); eGFR > 60 See Note
[2025-08-20 06:05] LABS: HCG,Qualitative Serum Negative
[2025-08-20 07:25] VITALS: BP 105/67; PULSE 60; RESP 16; TEMP 36.4; O2SAT 99
--- NOTE | 2025-08-20 07:27 | EDNOTE_ITS ---
<Statement entered by Aubree Merlos MD - 08/20/25 12:35> As co-signing physician, I was present and available for consult prn. I concur with the plan and care as documented by the midlevel provider. ED Abdominal Pain RME/HPI General Chief Complaint: Abdominal Pain Stated complaint: RIGHT UPPER ABDOMINAL PAIN Time seen by provider: 08/20/25 03:41 Arrival date/time: 08/20/25 03:15 45-year-old female with no known medical history presents to the emergency room with a chief complaint of right-sided flank pain and right upper abdominal pain x 2 days Source: patient Mode of arrival: ambulatory Limitations: no limitations RME / HPI RME / HPI narrative: See MDM for Dr. Sloan's HPI Documentation. Related Data Home Medications ?Medication ?Instructions ?Recorded ?Confirmed vits [id number] 1 tab PO QDAY 8 10/08/24 27 mg iron-folic acid 800 mcg tablet ( Vitamin) Previous Rx's ?Medication ?Instructions ?Recorded docusate sodium 100 mg capsule 100 mg PO BID #60 caps 10/09/24 (Colace) ibuprofen 800 mg tablet 800 mg PO Q6H PRN pain #120 tabs 10/09/24 lanolin 50 % topical ointment 1 applic topical TID PRN skin 10/09/24 irritation #15 tubes ibuprofen 600 mg tablet 600 mg PO Q8H PRN fever or p ain 08/20/25 #20 tabs tamsulosin 0.4 mg capsule (Flomax) 0.4 mg PO QDAY #30 caps 08/20/25 Allergies Allergy/AdvReac Type Severity Reaction Status Date / Time Penicillins Allergy Severe Swelling Verified 10/09/24 19:42 of Lip/Tongue/Throat Review of Systems Review of Systems Systems Reviewed: All systems reviewed, normal except as documented Constitutional Constitutional: Reports system reviewed and no additional complaints, except as documented, Denies fatigue, Denies fever(s), Denies headache(s) and Denies weakness Eyes Eyes: Reports system reviewed and no additional complaints, except as documented, Denies blurry vision and Denies change in vision ENT Ears, Nose, Mouth, and Throat: Reports system reviewed and no additional complaints, except as documented, Denies otalgia, Denies headache(s), Denies nasal congestion, Denies throat swelling and Denies vertigo Cardiovascular Cardiovascular: Reports system reviewed and no additional complaints, except as documented, Denies chest pain, Denies dyspnea and Denies dyspnea on exertion Respiratory Respiratory: Reports system reviewed and no additional complaints, except as documented, Denies chest congestion, Denies cough, Denies dyspnea, Denies dyspnea on exertion and Denies wheezing Gastrointestinal Gastrointestinal: Reports system reviewed and no additional complaints, except as documented, Reports abdominal pain, Reports cramping, Reports nausea and Reports vomiting Genitourinary Genitourinary: Reports system reviewed and no additional complaints, except as documented Musculoskeletal Musculoskeletal: Reports system reviewed and no additional complaints, except as documented and Denies back pain Integumentary/Breasts Skin/Breast: Reports system reviewed and no additional complaints, except as documented and Denies wounds Neurologic Neurologic: Reports system reviewed and no additional complaints, except as documented, Denies confusion, Denies headache(s), Denies lack of coordination, Denies vertigo and Denies weakness Psychiatric Psychiatric: Reports system reviewed and no additional complaints, except as documented, Denies anxiety, Denies confusion, Denies depression, Denies paranoia, Denies suicidal ideation and Denies tactile hallucinations Endocrine Endocrine: Reports system reviewed and no additional complaints, except as documented and Denies fatigue Hematologic/Lymphatic Hematologic/Lymphatic: Reports system reviewed and no additional complaints, except as documented and Denies lymphadenopathy Allergic/Immunologic Allergic/Immunologic: Reports system reviewed and no additional complaints, except as documented, Denies throat swelling, Denies urticaria and Denies wheezing ED Exam General Limitations: Present no limitations General appearance: Present alert and in no apparent distress Head Head exam: Present atraumatic Eye Eye exam: Present normal appearance, PERRL and EOMI ENT ENT exam: Present normal exam, normal oropharynx and mucous membranes moist Neck Neck exam: Present normal inspection, full ROM and trachea midline Chest Chest inspection: Present normal inspection and symmetric chest wall rise Respiratory Respiratory exam: Present normal lung sounds bilaterally; Absent respiratory distress, wheezes, stridor, accessory muscle use or prolonged expiratory phase Cardiovascular Cardiovascular exam: Present regular rate, normal rhythm and normal heart sounds; Absent tachycardia Abdominal Exam Abdominal exam: Present soft, tenderness and normal bowel sounds; Absent Godfrey's sign or tenderness at McBurney's Point Abdominal tenderness: Present RUQ and mild Extremities Exam Extremities exam: Present normal inspection and full ROM Back Exam Back exam: Present normal inspection, full ROM and CVA tenderness (R) Neurological Exam Neurological exam: Present alert, oriented X3 and CN II-XII intact Psychiatric Psychiatric exam: Present normal affect and normal mood Skin Skin exam: Present warm, dry, intact and normal color Course Quality Measures none Orders Category Date Time Status CT abdomen pelvis wo con Stat Exams 08/20/25 03:40 Completed US gall bladder Stat Exams 08/20/25 03:41 Taken Amylase Stat Lab 08/20/25 05:19 Completed Bilirubin,Direct Stat Lab 08/20/25 05:19 Completed CBC Stat Lab 08/20/25 05:19 Completed CMP [Comprehensive Metabolic Panel] Stat Lab 08/20/25 05:19 Completed HCG Qualitative,Urine Stat Lab 08/20/25 04:21 Completed HCG,Qualitative Serum Stat Lab 08/20/25 05:19 Completed Lipase Stat Lab 08/20/25 05:19 Completed Magnesium Stat Lab 08/20/25 05:19 Completed UA, C/S IF [Urinalysis, C/S if Indicated] Stat Lab 08/20/25 04:21 Completed ACETAMINOPHEN w/COD 300-30 [Tylenol w/Cod #3] Med 08/20/25 03:40 Discontinued 2 tab PO X1 ONE Ketorolac Inj [Toradol Inj] Med 08/20/25 03:40 Discontinued 60 mg IM X1 ONE Ondansetron Odt [Zofran Odt] Med 08/20/25 03:40 Discontinued 4 mg PO X1 ONE Vital Signs Vital signs: Vital Signs Temperature 97.7 F 08/20/25 03:22 Pulse Rate 68 08/20/25 03:22 Respiratory Rate 19 08/20/25 03:22 Blood Pressure 102/68 08/20/25 03:22 Pulse Oximetry (%) 99 08/20/25 03:22 Oxygen Delivery Method Room Air 08/20/25 03:22 Abdominal Pain MDM MDM Narrative MDM Narrative:: 45-year-old female with no known medical history presents to the emergency room with a chief complaint of right-sided flank pain and right upper abdominal pain x 2 days Patient is hemodynamically stable and in no apparent distress Physical examination shows right-sided CVA tenderness with palpation. During my reevaluation the patient states that her pain has significantly decreased after getting medication. A CT of the abdomen and pelvis shows a 1 mm stone to the right renal calculus. There is no UTI there is no leukocytosis Patient was discharged and educated to follow-up with primary care provider in the next 24 to 48 hours and return to the emergency room for any evidence of worsening signs or symptoms Patient data External records reviewed:: [facility] previous records Clinical information provided by:: patient Social determinants that could affect healthcare access:: none Patient has the following chronic illnesses:: No chronic illness How is presenting disease/condition affected by chronic disease/condition?: no chronic disease Evaluation data The following diagnostics were reviewed and interpreted by me:: lab results and radiology exam(s) Lab and/or radiology exams considered but not ordered:: Labs and radiology exams considered and ordered Interpretation Summary: CT abdomen and pelvis-IMPRESSION: One mm nonobstructing lower pole right renal calculus, no hydronephrosis or ureteral calculi Mild renal scarring Normal appendix No bladder mass or bladder calculi Medications / Prescriptions Medications or Prescriptions considered but not ordered:: Medication given Medication administrations:: Medication Administration History Discontinued Medications Acetaminophen/Codeine Phosphate (Acetaminophen W/Cod 300-30 Tablet) 2 tab PO X1 ONE Stop: 08/20/25 03:41 Last Admin: 08/20/25 04:17 Dose: 2 tab Documented By: CATHIE Ketorolac Tromethamine (Ketorolac Inj 60 Mg/2 Ml Vial) 60 mg IM X1 ONE Stop: 08/20/25 03:41 Last Admin: 08/20/25 04:17 Dose: 60 mg Documented By: CATHIE Ondansetron HCl (Ondansetron Odt 4 Mg Tabrap) 4 mg PO X1 ONE; Protocol Stop: 08/20/25 03:41 Last Admin: 08/20/25 04:17 Dose: 4 mg Documented By: CATHIE Medication given Consultations Consultation(s) initiated? (list below): No Diagnosis Differential diagnosis abdominal pain: abdominal pain, acute appendicitis, calculus of kidney and gastroenteritis Most likely diagnosis given after review of the tests above:: Calculus of kidney Admission Indicated Admission indicated?: not indicated Admission Request Was there a request for admission?: No Disposition Plan Disposition Plan: Discharge Discharge Attestation Discharge Attestation: The patient and all family members were given an opportunity to ask questions and understood the discharge instructions. Discharge instructions specifically effects, indications for sooner follow up or return to the emergency department, and the expected course of current diagnosis. Patient condition: Stable Discharge Plan Plan Patient Disposition: HOME (Self Care) Discharge Disposition comment: Stable Prescriptions/Referrals Prescriptions/Med Rec: New ibuprofen 600 mg tablet 600 mg PO Q8H PRN (Reason: fever or pain) Qty: 20 0RF tamsulosin [Flomax] 0.4 mg capsule 0.4 mg PO QDAY Qty: 30 0RF No Action Vitamin 27 mg iron- 800 mcg Tablet 1 tab PO QDAY ibuprofen 800 mg tablet 800 mg PO Q6H MDD 4 PRN (Reason: pain) Qty: 120 0RF docusate sodium [Colace] 100 mg capsule 100 mg PO BID Qty: 60 0RF lanolin 50 % ointment 1 applic topical TID PRN (Reason: skin irritation) Qty: 15 0RF Referrals: Wesley Campbell MD [Primary Care Provider, Obstetrics] - In 1 week Problem List Clinical Impression: Abdominal pain, Right renal stone Patient/Caregiver Discharge Instructions Education Materials: ED Kidney Stone w/ Colic Additional Instructions: Por favor, consulte con [place]anan m?dico de cabecera en las pr?ximas 24 a 48 horas. Hay un richard?o c?lculo renal de 1 mm. El medicamento fue enviado a [place] farmacia; rec?jalo y t?abbasi seg?n lo indicado. Si observa cualquier signo de empeoramiento de los signos o s?ntomas, acuda inmediatamente a urgencias. Print Language: Estonian Stand Alone Forms: Abby Award Info., Patient Portal Info Letter PA/APPLIQUER Supervising Physician PA/APPLIQUER Supervising Physician: Dr. MERLOS
== END 2025-08-20 07:31 | disposition home or self-care (01) ==
PROVIDERS: Emergency Provider Emergency Medicine; PCP Obstetrics & Gynecology
DX: N20.0 Calculus of kidney (principal)
CPT/HCPCS: 36415; 74176; 76705; 80053; 81001; 81025; 82150; 82248; 83690; 83735; 84703; 85025; 96372; 99281; J1885; Q0162; A9270